=== PATIENT | male | born 1960 | race Caucasian/White ===

== ENCOUNTER 2021-03-29 11:26 | Emergency (ER) | payer MEDICARE, OTHER ==
[2021-03-29] MEDS ORDERED: IBUPROFEN600 MG PO (14:55)
[2021-03-29] MEDS ORDERED: CYCLOBENZAPRINE10 MG PO (14:55)
== END 2021-03-29 15:08 | disposition home or self-care (01) ==
LOC: ER1 11:26
DX: S16.1XXA Strain of muscle, fascia and tendon at neck level, initial encounter (principal); M50.10 Cervical disc disorder with radiculopathy, unspecified cervical region; X58.XXXA Exposure to other specified factors, initial encounter
CPT/HCPCS: 72125; 96372; 99283; J1885; J2360

== ENCOUNTER 2021-05-14 21:07 | Emergency (ER) | payer MEDICARE, OTHER ==
[~2021-05-14 21:07] MED LIST: CYCLOBENZAPRINE10 MG PO; IBUPROFEN600 MG PO
[2021-05-14 21:24] LABS: HEMOGLOBIN 14.9 gm/dl (14.0-17.5); RED BLOOD COUNT 4.76 M/UL (4.20-5.50); WHITE BLOOD COUNT 7.2 K/UL (4.5-11.0)
[2021-05-14 21:55] LABS: BUN/CREATININE RATIO 18 (0-10)
[2021-05-15] MEDS ORDERED: ASPIRIN CHEWABL81 MG PO (00:32)
== END 2021-05-15 00:50 | disposition home or self-care (01) ==
LOC: ER1 21:07
PROVIDERS: Family Medicine
DX: R07.9 Chest pain, unspecified (principal); J44.9 Chronic obstructive pulmonary disease, unspecified; F17.200 Nicotine dependence, unspecified, uncomplicated
CPT/HCPCS: 71045; 80053; 82550; 82553; 83874; 84484; 85025; 85379; 93005; 96374; 99285; J1885